=== PATIENT | male | born 1970 | race Caucasian/White ===

== ENCOUNTER 2018-11-08 23:11 | Emergency (ER) | payer MEDICAID ==
[~2018-11-08] VITALS: Ht 167.6 cm; Wt 101.2 kg
[2018-11-08 23:37] VITALS: Ht 167.6 cm; Wt 101.2 kg
[2018-11-09 00:50] LABS: CALCIUM 8.6 mg/dL (8.5-10.1); CARBON DIOXIDE 27.4 mmol/L (21-32); CHLORIDE SERUM 104 mmol/L (98-107); GFR1 > 60 mL/min; GLUCOSE SERUM 102 mg/dL (74-106); POTASSIUM SERUM 4.3 mmol/L (3.5-5.1); SODIUM SERUM 138 mmol/L (136-145)
[2018-11-09 00:52] LABS: BASOPHIL % 0.3 % (0-2); PLATELET COUNT 175 x10^3mcL (130-400); RED CELL DISTRIBUTION WIDTH 14.1 % (11.5-14.5)
[2018-11-09 00:54] LABS: ALBUMIN 4.1 g/dL (3.4-5.0); ALKALINE PHOSPHATASE 109 U/L (46-116); ALT/SGPT 74 U/L (16-63); AST/SGOT 40 U/L (15-37); BILIRUBIN TOTAL 0.43 mg/dL (0.20-1.00); LIPASE 113 IU/L (73-393); TOTAL PROTEIN, SERUM 7.6 g/dL (6.4-8.2)
[2018-11-09 02:29] VITALS: BP 119/72
== END 2018-11-09 02:29 | disposition home or self-care (01) ==
LOC: ED 23:11
PROVIDERS: Emergency Medicine
DX: R10.32 Left lower quadrant pain (principal); K59.00 Constipation, unspecified; Z88.6 Allergy status to analgesic agent
CPT/HCPCS: 36415; J1885

== ENCOUNTER 2018-12-18 07:16 | Day surgery (SDC) | payer MEDICAID ==
[~2018-12-18] VITALS: Ht 167.6 cm; Wt 127.0 kg
[2018-12-18 07:34] VITALS: BP 134/74
[2018-12-18 09:31] VITALS: BP 107/72
== END 2018-12-18 10:40 | disposition home or self-care (01) ==
LOC: GI → OR 08:00 → GI 08:00
PROVIDERS: Internal Medicine Gastroenterology
PROC: 0DJD8ZZ Inspection of Lower Intestinal Tract, Via Natural or Artificial Opening Endoscopic (ICD-10-PCS; principal; 2018-12-18 08:00)
DX: K59.00 Constipation, unspecified (principal); R19.4 Change in bowel habit; R10.9 Unspecified abdominal pain
CPT/HCPCS: 45378; J1200; J1610; J2250; J2310; J3010; J3490